=== PATIENT | male | born 1955 | race Caucasian/White ===

== ENCOUNTER 2017-06-11 05:38 | Day surgery (SDC) | payer OTHER ==
[~2017-06-11] VITALS: Ht 177.8 cm; Wt 124.3 kg
[~2017-06-11 05:38] MED LIST: CAPZASIN-HP42.5 GM TOP; HYDROXYZINE HCL50 MG PO; MELOXICAM15 MG PO; TRAZODONE HCL50 MG PO; VENTOLIN HFA18 GM INH
[2017-06-11] MEDS ORDERED: GABAPENTIN400 MG PO (06:13)
--- NOTE | 2017-06-11 07:57 | NUR ---
06/11/17 0757 VaughnAleksey maloney 0754: SAT 98, O2 DECREASED TO 6L VIA MASK.
--- NOTE | 2017-06-11 08:37 | NUR ---
ICED WATER AND PUDDING GIVEN. OFFICERS REMAIN @ BS.
[2017-06-11] MEDS ORDERED: TRAMADOL HCL50 MG PO (08:49)
--- NOTE | 2017-06-11 09:49 | NUR ---
VERBAL REPORT CALL TO [facility] RN AND SHE VERBALIZES UNDERSTANDING. DC INSTRUCTIONS GIVEN AND PT VERBALIZES UNDERSTANDING. PT MOVES WELL AROUND THE ROOM W/STANDBY OF OFFICERS GETTING DRESSED.
--- NOTE | 2017-06-16 07:08 | OR ---
[facility] [address], [place] [address] Signed DATE OF PROCEDURE: 06/11/17 PREOPERATIVE DIAGNOSIS: Lateral meniscal tear, left knee. POSTOPERATIVE DIAGNOSIS: Lateral meniscal tear, left knee. PROCEDURE: Left knee arthroscopy with partial lateral meniscectomy. SURGEON: Clive Benitez MD ANESTHESIA: General. SPECIMENS AND COMPLICATIONS: There were no specimens or complications. TOURNIQUET TIME: Was about 20 minutes. PROCEDURE The patient was taken to the operating room. After anesthesia was induced and the airway secured, the patient was positioned, prepped and draped in a routine sterile fashion. The leg was exsanguinated with an Esmarch bandage. Pneumatic tourniquet about the thigh was inflated to 300 mmHg pressure. The standard superolateral outflow portal was created as was the standard anterolateral portal. The outflow cannula was placed followed by the arthroscope in the anterolateral portal. A nerve hook was introduced through an anteromedial portal after localizing the anteromedial portal with transillumination and a spinal needle. Diagnostic arthroscopy of the knee joint revealed an unremarkable suprapatellar pouch. Patellofemoral joint had minimal chondral degenerative changes. The medial recess had a small medial osteophyte along the medial femoral condyle, but no other abnormalities. Medial compartment had several areas of full-thickness articular cartilage loss over the weightbearing in the posterior aspect of the medial femoral condyle, but there were no reciprocal changes on the tibial plateau and the medial meniscus was unremarkable to inspection and palpation. The ACL was unremarkable to inspection and palpation as well. All compartment revealed a complex tear of the posterior horn and a flap tear of the anterior horn of the lateral meniscus. Basket forceps were introduced. The meniscal tears we r e completed and the fragments delivered out of the knee. A motorized shaver was then introduced and the edges of the meniscectomy were smoothed and contoured. The lateral recess was unremarkable. The knee was copiously irrigated and drained. The portals w ere closed and sterile dressings applied. The patient was awakened from recovery room and arrived in stable condition. Counts were correct and antibiotic protocols were followed. Electronically Signed By: CLIVE BENITEZ MD 06/16/17 0708 PATIENT NAME: MITZI RIBEIRO OPERATIVE REPORT DATE OF : 59 PHYSICIAN: CLIVE BENITEZ MD REPORT #: [id number] REPORT IS CONFIDENTIAL AND NOT TO BE RELEASED WITHOUT AUTHORIZATION [address] [place], [place] [address] Signed Clive Benitez MD WFB/Modl /[id number] cc: Russel Christian MD Electronically Signed By: CLIVE BENITEZ MD 06/16/17 0708 PATIENT NAME: MITZI RIBEIRO OPERATIVE REPORT DATE OF : 59 PHYSICIAN: CLIVE BENITEZ MD REPORT #: [id number] REPORT IS CONFIDENTIAL AND NOT TO BE RELEASED WITHOUT AUTHORIZATION
== END 2017-06-11 09:47 | disposition home or self-care (01) ==
LOC: DS 05:38
PROVIDERS: Orthopaedic Surgery
PROC: 0SBD4ZZ Excision of Left Knee Joint, Percutaneous Endoscopic Approach (ICD-10-PCS; principal; 2017-06-11 06:45)
DX: S83.272A Complex tear of lateral meniscus, current injury, left knee, initial encounter (principal); Z88.7 Allergy status to serum and vaccine
CPT/HCPCS: 01400; J0690; J1100; J1885; J2250; J2405; J2704; J2765; J3010; J7120